=== PATIENT | male | born 1965 | race Hispanic/Latino ===

== ENCOUNTER 2022-10-24 09:57 | Day surgery (SDC) | payer OTHER ==
[~2022-10-24] VITALS: Ht 177.8 cm; Wt 98.0 kg
[~2022-10-24 09:57] MED LIST: LEVOTHYROXINE150 MC1 PO
[2022-10-24] MEDS ORDERED: AMBIEN5 MG PO (10:19)
--- NOTE | 2022-10-24 11:24 | NUR ---
10/24/22 1124 Taylor Bazzi 1121 PATIENT ARRIVES TO PACU AWAKE/ON, RESTING WITH EYES CLOSED WHEN NOT STIMULATED. RESP EVEN AND UNLABORED, ROOM AIR SATS >95%. DENIES PAIN OR NAUSEA. DENIES NEEDS.
--- NOTE | 2022-10-24 14:33 | OR ---
[facility] [address] [place], [place] [address] Signed DATE OF OPERATION: 10/24/2022 SURGEON: Ike Machado MD PREOPERATIVE DIAGNOSIS: Colon screening. POSTOPERATIVE DIAGNOSIS: Normal colon to cecum. PROCEDURE: Total colonoscopy to cecum. ANESTHESIA: Intravenous sedation, fentanyl 100 mcg, Versed 6 mg. INDICATION: This 57-year-old man lives in [place], works in [place], [place]. He is a patient of Dr. Cooper and is referred at this time for screening colonoscopy. He has never had colonoscopy in the past and has no symptoms of bleeding, diarrhea or constipation and no family history of colon cancer. He understands the risk of bleeding, infection, and perforation related to colonoscopy and wished to proceed. FINDINGS: The prep was excellent. Complete colonoscopy was undertaken to the cecum. There was no evidence of polyps, diverticular formation, colitis, or cancer. DESCRIPTION OF PROCEDURE: The patient was brought to the endoscopy suite and placed in the lateral decubitus position, given intravenous sedation to the point of slurred speech and nystagmus. Digital rectal examination was normal. An Olympus video colonoscope was passed in the rectum and manipulated throughout the colon ultimately intubating the right colon. Passage to the cecum itself was somewhat prolonged, but ultimately the cecum could be well visualized, particularly with using the biopsy forceps and elevating mucosa behind the ileocecal valve proper. There was no evidence of polyp or abnormality there. The scope was then withdrawn and examination throughout was normal. Retroflexed view was normal as well. The scope was removed and the patient was taken to the recovery room in good condition. Electronically Signed By: IKE MACHADO MD 10/24/22 1433 PATIENT NAME: BERLIN ROJAS OPERATIVE REPORT DATE OF : 65 REPORT #: [id number] PHYSICIAN: IKE MACHADO MD PCP: LEONCIO COOPER MD REPORT IS CONFIDENTIAL AND NOT TO BE RELEASED WITHOUT AUTHORIZATION [facility] [address] [facility] [place] [place] [address] Signed CONCLUDING DIAGNOSIS: Normal colon to cecum. PLAN: Recommend repeat colonoscopy in 10 years, sooner if symptoms should occur. He will return to the ongoing care of Dr. Cooper. MD RHONDA Farrar/TYRON /[id number] cc: Copies: ~ Electronically Signed By: IKE MACHADO MD 10/24/22 1433 PATIENT NAME: BERLIN ROJAS OPERATIVE REPORT DATE OF : 65 REPORT #: [id number] PHYSICIAN: IKE MACHADO MD PCP: LEONCIO COOPER MD REPORT IS CONFIDENTIAL AND NOT TO BE RELEASED WITHOUT AUTHORIZATION
== END 2022-10-24 11:55 | disposition home or self-care (01) ==
LOC: OPS 09:57 → DS 09:57 → OPS 11:00 → DS 13:00 → OPS 13:00
PROVIDERS: ATTEND Surgery
PROC: 0DJD8ZZ Inspection of Lower Intestinal Tract, Via Natural or Artificial Opening Endoscopic (ICD-10-PCS; principal; 2022-10-24 11:00)
DX: Z12.11 Encounter for screening for malignant neoplasm of colon (principal); Z86.39 Personal history of other endocrine, nutritional and metabolic disease; Z90.09 Acquired absence of other part of head and neck
CPT/HCPCS: 99153; G0500; J2250; J3010; J7121